=== PATIENT | female | born 2000 | race Hispanic/Latino ===

== ENCOUNTER 2021-07-08 14:25 | Emergency (ER) | payer OTHER, SELFPAY ==
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
[2021-07-08 14:43] VITALS: BP 153/94; PULSE 86; RESP 14; TEMP 36.8; O2SAT 99
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
== END 2021-07-08 18:40 | disposition home or self-care (01) ==
LOC: ANHED 18:18
PROVIDERS: Emergency Provider Nurse Practitioner Family
DX: M54.2 Cervicalgia (principal); M43.6 Torticollis; M54.50 Low back pain, unspecified; V49.9XXA Car occupant (driver) (passenger) injured in unspecified traffic accident, initial encounter; Y92.410 Unspecified street and highway as the place of occurrence of the external cause
CPT/HCPCS: 72040; 72110; 81025; 99283